=== PATIENT | male | born 1985 | race Hispanic/Latino ===

== ENCOUNTER 2018-11-16 07:35 | Emergency (ER) | payer OTHER ==
[2018-11-16 07:40] VITALS: RESP 16; TEMP 97.7
[2018-11-16 08:54] VITALS: BP 128/76; PULSE 82
--- NOTE | 2018-11-16 09:00 | ED PDOC ---
HPI: Psych/Substance Abuse Time Seen by Provider: 11/16/18 08:27 Chief Complaint (Nursing): Alcohol Ingestion History Per: Patient History/Exam Limitations: no limitations Onset/Duration Of Symptoms: Days (1) Modifying Factor(s): Alcohol Severity: None Associated Symptoms: denies: Anger, Anxiety, Agitation, Depression, Paranoia, Suicidal Thoughts, Suicidal Plan Involuntary Hold By: Local [employer] Past Medical History Reviewed: Historical Data, Nursing Documentation, Vital Signs Vital Signs: Last Vital Signs Temp 97.7 F 11/16/18 07:53 Pulse 80 11/16/18 07:53 Resp 16 11/16/18 07:53 BP 137/91 H 11/16/18 07:39 Pulse Ox 99 11/16/18 07:53 - Medical History PMH: No Chronic Diseases - Surgical History Surgical History: No Surg Hx - Family History Family History: States: No Known Family Hx - Immunization History Hx Tetanus Toxoid Vaccination: No Hx Influenza Vaccination: No Hx Pneumococcal Vaccination: No - Allergies Allergies/Adverse Reactions: Allergies Allergy/AdvReac Type Severity Reaction Status Date / Time No Known Allergies Allergy Verified 11/16/18 08:46 Review of Systems ROS Statement: Except As Marked, All Systems Reviewed And Found Negative Physical Exam - Reviewed Nursing Documentation Reviewed: Yes Vital Signs Reviewed: Yes - Physical Exam Appears: Positive for: Well, Non-toxic, No Acute Distress Skin: Positive for: Warm, Dry Eye Exam: Positive for: EOMI Neurologic/Psych: Positive for: Alert, Oriented, Gait (steady) - ECG O2 Sat by Pulse Oximetry: 99 Medical Decision Making Medical Decision Making: Alcohol abuse Stable for Discharge. Disposition - Clinical Impression Clinical Impression: Alcohol abuse - Patient ED Disposition Is Patient to be Admitted: No Doctor Will See Patient In The: Office Counseled Patient/Family Regarding: Studies Performed, Diagnosis, Need For Followup - Disposition Disposition: Routine/Home Disposition Time: 08:45 Condition: GOOD Instructions: Alcohol Use - When Is Drinking a Problem?
[2018-11-16 09:06] VITALS: O2SAT 99
== END 2018-11-16 08:52 | disposition home or self-care (01) ==
LOC: H.ER 07:35
DX: F10.10 Alcohol abuse, uncomplicated (principal)